=== PATIENT | female | born 1975 | race Caucasian/White ===

== ENCOUNTER → 2019-09-16 | Outpatient (CLI) | payer OTHER ==
[~2019-09-16] MED LIST: ACET325 PO; Advil200 M1 PO; BC PATCH; CANNABIS OIL PO; CETI5; CETI5 PO; DIPH50 PO; FRANKINCENSE TOP; LORA10 PO; Lidocaine-Priloc5 GM TOP; ONDA8 PO; OXYACE5T PO; Omeprazole20 M1 PO; PROM25 PO
== END | disposition home or self-care (01) ==
LOC: LAB SHORT 08:29 → PLD 08:29
DX: R23.4 Changes in skin texture (principal)
CPT/HCPCS: 88305; 88312

== ENCOUNTER → 2019-11-21 | Outpatient (CLI) | payer OTHER ==
[2019-11-21 16:30] LABS: BASOPHILS ABSOLUTE AUTO 0.02 K/mm3 (0.00-0.23); BASOPHILS PERCENT AUTO 0 % (0-2); EOSINOPHILS PERCENT AUTO 2 % (0-6); Hematocrit 39.2 % (33.0-51.0); Hemoglobin 12.9 g/dL (11.5-16.0); IMMATURE GRAN ABSOLUTE AUTO 0.03 K/mm3 (0.00-0.10); IMMATURE GRAN PERCENT AUTO 1 % (0-1); LYMPHOCYTES ABSOLUTE AUTO 0.83 K/mm3 (0.84-5.20); LYMPHOCYTES PERCENT AUTO 14 % (21-46); MONOCYTES ABSOLUTE AUTO 0.31 K/mm3 (0.16-1.47); MONOCYTES PERCENT AUTO 5 % (4-13); Mean Corpuscular HGB 30.9 pg (26.0-34.0); Mean Corpuscular HGB Conc 32.9 g/dL (31.5-36.5); Mean Corpuscular Volume 94 fL (80-100); Mean Platelet Volume 10.4 fL (9.1-12.4); NEUTROPHILS ABSOLUTE AUTO 4.55 K/mm3 (1.96-9.15); NEUTROPHILS PERCENT AUTO 78 % (41-73); Platelet Count 213 K/mm3 (150-400); RDW Coefficient Variation 13.4 % (11.7-14.2); RDW Standard Deviation 46.4 fL (35.1-46.3); Red Blood Cell Count 4.17 M/mm3 (3.80-5.20); White Blood Cell Count 5.84 K/mm3 (4.00-11.30)
[2019-11-21 17:03] LABS: Albumin, Blood 3.9 g/dL (3.4-5.0); Alk Phos 673 U/L (40-126); Anion Gap 11 mmol/L (6-16); Bilirubin, Total 4.2 mg/dL (0.1-1.0); Blood Urea Nitrogen 9 mg/dL (8-24); Bun/Creatinine Ratio 12.9 (12.0-20.0); CO2, Blood 27 mmol/L (21-32); Calcium, Blood 9.1 mg/dL (8.5-10.1); Chloride, Blood 102 mmol/L (98-108); Globulin, Blood 3.8 g/dL (2.2-4.0); Glomerular Filtration Rate >60 (60-); Glucose, Blood 136 mg/dL (70-99); Sodium, Blood 140 mmol/L (136-145); Total Protein, Blood 7.7 g/dL (6.4-8.2)
[2019-11-21 17:06] LABS: Alanine Aminotransfer (ALT/SGP 2824 U/L (12-78); Aspartate Aminotrans (AST/SGOT 1661 U/L (12-37)
== END ==
LOC: LAB SHORT 16:25 → LAB EV 16:25
PROVIDERS: Emergency Medicine
DX: E86.0 Dehydration (principal)
CPT/HCPCS: 80053; 83690; 85025

== ENCOUNTER → 2020-09-03 | Outpatient (CLI) | payer OTHER ==
[~2020-09-03] MED LIST changes: +CITA20 PO; +COMPAZINE10 MG; +DULCOLAX400 MG/5 M; +DURAGESIC1 EAC1 TOP; +HYDMOR2; +METO5A PO; +OLANZAPINE ODT10 MG PO; +OLANZAPINE PO; +OMEP20ER; +PANT40 PO; +POTA20LUD PO
[2020-09-03 16:03] LABS: Hematocrit 26.1 % (33.0-51.0); Hemoglobin 8.4 g/dL (11.5-16.0); Mean Corpuscular HGB 27.8 pg (26.0-34.0); Mean Corpuscular HGB Conc 32.2 g/dL (31.5-36.5); Mean Corpuscular Volume 86 fL (80-100); RDW Coefficient Variation 14.6 % (11.7-14.2); RDW Standard Deviation 46.1 fL (35.1-46.3); Red Blood Cell Count 3.02 M/mm3 (3.80-5.20); White Blood Cell Count 16.56 K/mm3 (4.00-11.30)
[2020-09-03 16:04] LABS: Mean Platelet Volume 11.9 fL (9.1-12.4); Platelet Count 139 K/mm3 (150-400)
[2020-09-03 16:56] LABS: Albumin/Globulin Ratio 0.4 (0.8-1.8); Bilirubin, Direct 1.6 mg/dL (0.0-0.3); Bilirubin, Indirect 0.3 mg/dL (0.1-0.7); Bilirubin, Total 1.9 mg/dL (0.1-1.0); Bun/Creatinine Ratio 28.1 (12.0-20.0); Calcium, Blood 9.1 mg/dL (8.5-10.1); Creatinine, Blood 1.14 mg/dL (0.40-1.00); Globulin, Blood 5.5 g/dL (2.2-4.0); Potassium, Blood 3.1 mmol/L (3.5-5.5); Total Protein, Blood 7.5 g/dL (6.4-8.2)
[2020-09-03 17:11] LABS: BAND PERCENT MAN 1 % (0-8); BASOPHILS PERCENT MAN 0 % (0-2); EOSINOPHILS PERCENT MAN 0 % (0-6); LYMPHOCYTES ABSOLUTE MAN 0.66 K/mm3 (0.84-5.20); LYMPHOCYTES PERCENT MAN 4 % (21-46); MONOCYTES ABSOLUTE MAN 0.16 K/mm3 (0.16-1.47); MONOCYTES PERCENT MAN 1 % (4-13); NEUTROPHILS ABSOLUTE MAN 15.73 K/mm3 (1.96-9.15); SEG NEUTROPHILS PERCENT MAN 94 % (41-73); TOTAL CELLS COUNTED 100
== END | disposition home or self-care (01) ==
LOC: LAB SHORT 14:50 → LAB 14:50
PROVIDERS: Nurse Practitioner
DX: E86.0 Dehydration (principal)
CPT/HCPCS: 80053; 82248; 85007; 85027

== ENCOUNTER 2020-09-09 00:06 | Day surgery (SDC) | payer OTHER ==
[~2020-09-09 00:06] MED LIST changes: -CITA20 PO; -COMPAZINE10 MG; -DULCOLAX400 MG/5 M; -DURAGESIC1 EAC1 TOP; -HYDMOR2; -METO5A PO; -OLANZAPINE ODT10 MG PO; -OLANZAPINE PO; -OMEP20ER; -PANT40 PO; -POTA20LUD PO
== END 2020-09-09 22:43 | disposition home or self-care (01) ==
LOC: ATC 00:06
DX: E86.0 Dehydration (principal); I10 Essential (primary) hypertension; K83.1 Obstruction of bile duct; C78.7 Secondary malignant neoplasm of liver and intrahepatic bile duct; C50.212 Malignant neoplasm of upper-inner quadrant of left female breast; Z88.1 Allergy status to other antibiotic agents; Z88.8 Allergy status to other drugs, medicaments and biological substances; Z79.899 Other long term (current) drug therapy
CPT/HCPCS: J7030

== ENCOUNTER 2020-09-12 18:46 | Inpatient (IN) | payer OTHER ==
[~2020-09-12] VITALS: Ht 165.1 cm; Wt 61.0 kg
[2020-09-12 19:14] LABS: BASOPHILS ABSOLUTE AUTO 0.03 K/mm3 (0.00-0.23); BASOPHILS PERCENT AUTO 0 % (0-2); EOSINOPHILS PERCENT AUTO 0 % (0-6); IMMATURE GRAN PERCENT AUTO 12 % (0-1); LYMPHOCYTES ABSOLUTE AUTO 0.84 K/mm3 (0.84-5.20); LYMPHOCYTES PERCENT AUTO 5 % (21-46); MONOCYTES ABSOLUTE AUTO 0.76 K/mm3 (0.16-1.47); MONOCYTES PERCENT AUTO 5 % (4-13); Mean Corpuscular HGB 28.5 pg (26.0-34.0); Mean Corpuscular HGB Conc 29.8 g/dL (31.5-36.5); Mean Corpuscular Volume 96 fL (80-100); Mean Platelet Volume 11.6 fL (9.1-12.4); NEUTROPHILS ABSOLUTE AUTO 12.76 K/mm3 (1.96-9.15); NEUTROPHILS PERCENT AUTO 78 % (41-73); NRBC ABSOLUTE 0.55 K/mm3 (0.00-0.02); NRBC Auto 3.4 /100 WBC (0.0-0.2); Platelet Count 220 K/mm3 (150-400); RDW Coefficient Variation 17.9 % (11.7-14.2); RDW Standard Deviation 55.3 fL (35.1-46.3); Red Blood Cell Count 1.58 M/mm3 (3.80-5.20); White Blood Cell Count 16.29 K/mm3 (4.00-11.30)
[2020-09-12 19:15] LABS: Hematocrit 15.1 % (33.0-51.0); Hemoglobin 4.5 g/dL (11.5-16.0)
[2020-09-12 19:32] LABS: Source, Urine Catheter
[2020-09-12 19:36] LABS: Appearance, Urine Cloudy (Clear); Blood, Urine 1+ (Neg); Color, Urine Amber (P-Yellow); Glucose Qualitative, Urine Neg (Neg); Ketones, Urine 1+ (Neg); Leukocyte Esterase, Urine 2+ (Neg); Nitrite, Urine Neg (Neg); Protein, Urine 2+ (Neg); Urobilinogen, Urine 1+ (Normal)
[2020-09-12 19:36] LABS: BAND PERCENT MAN 5 % (0-8); BASOPHILS PERCENT MAN 0 % (0-2); EOSINOPHILS PERCENT MAN 0 % (0-6); LYMPHOCYTES ABSOLUTE MAN 0.65 K/mm3 (0.84-5.20); LYMPHOCYTES PERCENT MAN 4 % (21-46); METAMYELOCYTE ABSOLUTE MAN 0.32 K/mm3 (0.00-0.00); METAMYELOCYTE PERCENT MAN 2 % (0-0); MONOCYTES ABSOLUTE MAN 0.48 K/mm3 (0.16-1.47); MONOCYTES PERCENT MAN 3 % (4-13); MYELOCYTE ABSOLUTE MAN 0.32 K/mm3 (0.00-0.00); MYELOCYTE PERCENT MAN 2 % (0-0); NEUTROPHILS ABSOLUTE MAN 14.49 K/mm3 (1.96-9.15); SEG NEUTROPHILS PERCENT MAN 84 % (41-73); TOTAL CELLS COUNTED 100
[2020-09-12 19:38] LABS: Alanine Aminotransfer (ALT/SGP 25 U/L (12-78); Albumin, Blood 1.9 g/dL (3.4-5.0); Albumin/Globulin Ratio 0.3 (0.8-1.8); Alk Phos 660 U/L (50-136); Anion Gap 18 mmol/L (6-16); Aspartate Aminotrans (AST/SGOT 23 U/L (12-37); Bilirubin, Total 1.4 mg/dL (0.1-1.0); Blood Urea Nitrogen 47 mg/dL (8-24); Bun/Creatinine Ratio 35.9 (12.0-20.0); CO2, Blood 21 mmol/L (21-32); Calcium, Blood 9.6 mg/dL (8.5-10.1); Chloride, Blood 99 mmol/L (98-108); Creatinine, Blood 1.31 mg/dL (0.40-1.00); Globulin, Blood 5.6 g/dL (2.2-4.0); Glomerular Filtration Rate 46 (60-); Glucose, Blood 196 mg/dL (70-99); Potassium, Blood 4.6 mmol/L (3.5-5.5); Sodium, Blood 138 mmol/L (136-145); Total Protein, Blood 7.5 g/dL (6.4-8.2); Troponin I <0.015 ng/mL (0.000-0.040)
[2020-09-12 19:41] LABS: Bilirubin, Urine 2+ (Neg)
[2020-09-12 19:42] LABS: Bacteria Many /hpf; Red Blood Cells, Urine 0-2 /hpf (0-2); Squamous Epithelial Cells Few /hpf (Few)
[2020-09-12] MEDS ORDERED: POTA20LUD PO (19:46)
[2020-09-12] MEDS ORDERED: DURAGESIC1 EAC1 TOP (19:48)
[2020-09-12] MEDS ORDERED: OLANZAPINE PO (19:49)
--- NOTE | 2020-09-13 04:23 | NUR ---
BONDING SUPERVISOR SUMMARY PT ADMITTED TO FLOOR AROUND 2300, ORIENTED X3 BUT CONTINUES TO BE LETHARGIC. HEPATIC DRAINAGE SYSTEM CHANGED. PEG TUBE DRESSING PLACED. CURRENTLY TRANSFUSING 3RD UNIT OF PRBC, TOLERATING WELL. BED IN LOWEST POSITION WITH CALL LIGHT IN REACH. WILL CONTINUE TO MONITOR AND REPORT TO ONCOMING RN.
[2020-09-13 09:48] LABS: Hematocrit 22.5 % (33.0-51.0); Hemoglobin 7.5 g/dL (11.5-16.0); Mean Corpuscular HGB 29.4 pg (26.0-34.0); Mean Corpuscular HGB Conc 33.3 g/dL (31.5-36.5); Mean Platelet Volume 11.4 fL (9.1-12.4); NRBC ABSOLUTE 0.15 K/mm3 (0.00-0.02); NRBC Auto 1.8 /100 WBC (0.0-0.2); Platelet Count 73 K/mm3 (150-400); RDW Coefficient Variation 14.6 % (11.7-14.2); RDW Standard Deviation 44.6 fL (35.1-46.3); Red Blood Cell Count 2.55 M/mm3 (3.80-5.20); White Blood Cell Count 8.42 K/mm3 (4.00-11.30)
[2020-09-13 09:59] LABS: Mean Corpuscular Volume 88 fL (80-100)
[2020-09-13 10:30] LABS: Anion Gap 5 mmol/L (6-16); Blood Urea Nitrogen 37 mg/dL (8-24); Bun/Creatinine Ratio 35.9 (12.0-20.0); CO2, Blood 30 mmol/L (21-32); Calcium, Blood 8.1 mg/dL (8.5-10.1); Chloride, Blood 106 mmol/L (98-108); Creatinine, Blood 1.03 mg/dL (0.40-1.00); Glomerular Filtration Rate >60 (60-); Glucose, Blood 111 mg/dL (70-99); Potassium, Blood 3.6 mmol/L (3.5-5.5); Sodium, Blood 141 mmol/L (136-145)
--- NOTE | 2020-09-13 12:00 | NUR ---
PT STARTED OF SHIFT WITH NO NAUSEA, BUT THE MORNING HAS PAST PT HAS BEEN REPORTING A SORE STOMACH AND HAS BEEN TREATED FOR NAUSEA X1 THIS HAS NOT BEEN EFFECTIVE WILL CONTACT DR PEPE TO SEE IF SHE CAN ORDER A DIFFERENT NAUSEA MED.
[2020-09-14 06:03] LABS: Hematocrit 24.9 % (33.0-51.0); Mean Corpuscular HGB 29.1 pg (26.0-34.0); Mean Corpuscular HGB Conc 32.1 g/dL (31.5-36.5); Mean Corpuscular Volume 91 fL (80-100); Mean Platelet Volume 11.9 fL (9.1-12.4); NRBC ABSOLUTE 0.12 K/mm3 (0.00-0.02); NRBC Auto 1.1 /100 WBC (0.0-0.2); Platelet Count 84 K/mm3 (150-400); RDW Coefficient Variation 15.9 % (11.7-14.2); RDW Standard Deviation 48.9 fL (35.1-46.3); Red Blood Cell Count 2.75 M/mm3 (3.80-5.20); White Blood Cell Count 11.09 K/mm3 (4.00-11.30)
--- NOTE | 2020-09-14 06:18 | NUR ---
FORENSIC ECONOMIST SUMMARY PT AAOX4 AND PLEASANT. PT CONTINUES TO HAVE N/V OFF AND ON THROUGHOUT THE NIGHT. MEDICATED WITH ANTIEMETIC MEDS PER EMAR WITH SOME RELIEF. CONTINUOUS TUBE FEEDING GOING AT 35 ML/HR FOR MOST OF THE NIGHT. CHANGED RATE TO GOAL OF 50 ML/HR LATE THIS AM PT DENIED BLOATING OR FEELING FULL AND NO RESIDUAL WAS NOTED. PT HAS USED BEDPAN WITH ASSISTANCE THROUGH THE NIGHT. DENIES PAIN, JUST COMPLAINS OF N/V. HAS BEEN ABLE TO REST OFF/ON TONIGHT. VSS, WILL CONTINUE TO MONITOR.
[2020-09-14 06:24] LABS: Albumin, Blood 1.4 g/dL (3.4-5.0); Anion Gap 7 mmol/L (6-16); Blood Urea Nitrogen 31 mg/dL (8-24); Bun/Creatinine Ratio 30.1 (12.0-20.0); CO2, Blood 32 mmol/L (21-32); Calcium, Blood 8.3 mg/dL (8.5-10.1); Chloride, Blood 101 mmol/L (98-108); Creatinine, Blood 1.03 mg/dL (0.40-1.00); Glomerular Filtration Rate >60 (60-); Glucose, Blood 178 mg/dL (70-99); Magnesium, Blood 2.1 mg/dL (1.6-2.4); Phosphorus, Blood 3.7 mg/dL (2.5-4.9); Potassium, Blood 3.2 mmol/L (3.5-5.5); Sodium, Blood 140 mmol/L (136-145)
[2020-09-14 06:26] LABS: BAND PERCENT MAN 1 % (0-8); BASOPHILS PERCENT MAN 0 % (0-2); EOSINOPHILS PERCENT MAN 0 % (0-6); LYMPHOCYTES ABSOLUTE MAN 0.66 K/mm3 (0.84-5.20); LYMPHOCYTES PERCENT MAN 6 % (21-46); MONOCYTES ABSOLUTE MAN 0.11 K/mm3 (0.16-1.47); MONOCYTES PERCENT MAN 1 % (4-13); MYELOCYTE ABSOLUTE MAN 0.33 K/mm3 (0.00-0.00); MYELOCYTE PERCENT MAN 3 % (0-0); NEUTROPHILS ABSOLUTE MAN 9.98 K/mm3 (1.96-9.15); SEG NEUTROPHILS PERCENT MAN 89 % (41-73); TOTAL CELLS COUNTED 100
--- NOTE | 2020-09-14 09:40 | NUR ---
STOMA BAG TO RT LATERAL RIB AREA CHANGED. PATIENT CLEANED OF FLUID THAT LEAKED FROM BAG. TUBING AND FEEDING CHANGED. TUBE FEEDING AT 50ML/HR. IV POTASSIUM STARTED WITH MINI BAG NS TO DILUTE. WCTM
--- NOTE | 2020-09-14 10:57 | NUR ---
ADVISED PATIENT HAD XTRA LARGE B.M. DARK IN COLOR WITH DARK RED BLOOD. TO SEND ONE TIME HEMOCULT.
[2020-09-14 12:39] LABS: Hematocrit 26.9 % (33.0-51.0); Hemoglobin 8.6 g/dL (11.5-16.0)
[2020-09-14 13:15] LABS: Percent Saturation 7.4 % (15.0-50.0)
[2020-09-14 13:45] LABS: Stool Occult Blood Guaiac 1 Pos (Neg)
[2020-09-14 18:06] LABS: Hematocrit 25.5 % (33.0-51.0); Hemoglobin 8.1 g/dL (11.5-16.0)
--- NOTE | 2020-09-14 18:25 | NUR ---
ALERT. ORIENTED. SPEAKS IN LOW VOICE. PER TECH AT THIS TIME ST AT 101. BLD PRESS 145/103 WITH AWARE AND STS WATCH FOR NOW. DR. APARICIO TO SEE LATER TODAY. PATIENT HAS STATED SHE DOES NOT FEEL LIKE SHE COULD DRINK THE FLUID GIVEN PRIOR TO COLONOSCOPY. AWARE. LEFT SIDED MASTECTOMY. H&H STABLE AT THIS TIME. UNLABORED RESPIRATIONS.WCTM
--- NOTE | 2020-09-15 04:19 | NUR ---
SHIFT SUMMARY PT HAD ONE EPISODE OF VOMITING, 300 ML DARK BROWN EMSIS AFTER GETTING UP TO THE BSC. OTHERWISE NO OTHER COMPLAINTS. HEPATIC DRAINAGE PORT DRAINING DARK BROWN/YELLOW FLUID. PT SEEMS WITHDRAWN. DR. APARICIO CAME TO TALK WITH PATIENT. PT IS CURRENTLY LAYING IN BED WITH EYES CLOSED, EVEN AND UNLABORED RESPIRATIONS. BED IN LOWERED POSITION WITH SIDE RAILS UP X2 FOR SAFETY. CALL LIGHT AND PERSONAL ITEMS WITH IN REACH. NO APPARENT NEEDS OR DISTRESS AT THIS TIME, WILL CONTINUE TO MONITOR UNTIL REPORT GIVEN TO DAY RN.
[2020-09-15 05:59] LABS: Hematocrit 23.1 % (33.0-51.0); Hemoglobin 7.2 g/dL (11.5-16.0)
[2020-09-15 06:14] LABS: Albumin, Blood 1.3 g/dL (3.4-5.0); Anion Gap 5 mmol/L (6-16); Blood Urea Nitrogen 27 mg/dL (8-24); Bun/Creatinine Ratio 32.6 (12.0-20.0); CO2, Blood 34 mmol/L (21-32); Calcium, Blood 8.4 mg/dL (8.5-10.1); Chloride, Blood 103 mmol/L (98-108); Creatinine, Blood 0.83 mg/dL (0.40-1.00); Glomerular Filtration Rate >60 (60-); Glucose, Blood 173 mg/dL (70-99); Phosphorus, Blood 3.5 mg/dL (2.5-4.9); Potassium, Blood 3.6 mmol/L (3.5-5.5); Sodium, Blood 142 mmol/L (136-145)
--- NOTE | 2020-09-15 13:04 | NUR ---
SAW PATIENT THIS AM. WATCHING H&H. SURESH HUFFMAN SALES PROFESSIONAL TO [employer] TUBE FEEDING. PATIENT STILL TAKING IN VERY LITTLE. URINE VERY DARK. STOOL YESTERDAY WAS DARK MAROON IN COLOR WITH DARK RED BLOOD STREAKS. 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 PATIENTS FRIENDS ,BEN, STS DAD WANTS TO TAKE HER TO [facility] ON SUNDAY. [facility].
[2020-09-15 14:35] LABS: Hematocrit 22.1 % (33.0-51.0); Hemoglobin 6.9 g/dL (11.5-16.0)
--- NOTE | 2020-09-15 15:34 | NUR ---
LEFT MESSAGE ON VOICE MAIL TO "CHECK RM 337 LABS AND LET ME KNOW IF SHE WANTS TO DO ANYTHING." HBG 7.2 TO 6.9. AWAITING ANY ORDERS.
--- NOTE | 2020-09-15 19:15 | NUR ---
ALERT. ORIENTED. MEDICATED FOR NAUSEA. HAS NOT VOMITING THIS SHIFT. STILL RECEIVING ONE UINT OF BLOOD AND IS TOLERATING WELL. WANTS TO GET D'C TOMORROW SO SHE CAN F/U WITH HER ONCOLOGY IN [place] ON SUNDAY WITH AWARE. IN TO SEE TONIGHT. TELE ON AND HAS BEEN ST UP TO 110. HAS HAS VERY LITTLE FLUIDS P.O. TUBE FEEDING INFUSING AT 50 ML/HR. REPORT TO NIGHT RN
[2020-09-16 06:01] LABS: Hematocrit 25.2 % (33.0-51.0); Hemoglobin 7.9 g/dL (11.5-16.0); Mean Corpuscular HGB Conc 31.3 g/dL (31.5-36.5); Mean Corpuscular Volume 93 fL (80-100); Mean Platelet Volume 11.6 fL (9.1-12.4); NRBC ABSOLUTE 0.02 K/mm3 (0.00-0.02); NRBC Auto 0.1 /100 WBC (0.0-0.2); Platelet Count 110 K/mm3 (150-400); RDW Coefficient Variation 16.3 % (11.7-14.2); Red Blood Cell Count 2.72 M/mm3 (3.80-5.20); White Blood Cell Count 17.77 K/mm3 (4.00-11.30)
[2020-09-16 06:22] LABS: Albumin, Blood 1.3 g/dL (3.4-5.0); Anion Gap 8 mmol/L (6-16); Blood Urea Nitrogen 31 mg/dL (8-24); Bun/Creatinine Ratio 34.3 (12.0-20.0); CO2, Blood 31 mmol/L (21-32); Calcium, Blood 8.5 mg/dL (8.5-10.1); Chloride, Blood 103 mmol/L (98-108); Glomerular Filtration Rate >60 (60-); Glucose, Blood 158 mg/dL (70-99); Phosphorus, Blood 4.1 mg/dL (2.5-4.9); Potassium, Blood 3.7 mmol/L (3.5-5.5); Sodium, Blood 142 mmol/L (136-145)
[2020-09-16 06:25] LABS: BAND PERCENT MAN 2 % (0-8); BASOPHILS PERCENT MAN 0 % (0-2); EOSINOPHILS PERCENT MAN 0 % (0-6); LYMPHOCYTES ABSOLUTE MAN 0.71 K/mm3 (0.84-5.20); LYMPHOCYTES PERCENT MAN 4 % (21-46); MONOCYTES ABSOLUTE MAN 0.35 K/mm3 (0.16-1.47); MONOCYTES PERCENT MAN 2 % (4-13); MYELOCYTE ABSOLUTE MAN 0.17 K/mm3 (0.00-0.00); MYELOCYTE PERCENT MAN 1 % (0-0); NEUTROPHILS ABSOLUTE MAN 16.52 K/mm3 (1.96-9.15); SEG NEUTROPHILS PERCENT MAN 91 % (41-73); TOTAL CELLS COUNTED 100
--- NOTE | 2020-09-16 06:29 | NUR ---
SUMMARY PT CONTINUES TO HAVE NAUSEA. PT RESPONDS WELL TO TX. PT HAD ONE EPISODE OF DRY HEAVES. PT DENIES PAIN. NO ISSUES NOTED W/ TUBE FEEDING. PT HAS SLEPT SOME T/O SHIFT. PT CURRENTLY SLEEPING IN NO DISTRESS. CALL LIGHT IN REACH.
--- NOTE | 2020-09-16 17:55 | NUR ---
SHIFT SUMMARY PT REMAINS VERY WEAK WITH C/O NAUSEA THRU OUT THE DAY. MEDICATED PER EMAR. TOLERATING TUBE FEEDING, BUT LIMITED PO INTAKE. UP TO BSC AND TO BTHRM THRU OUT THE DAY. VERY LRG, BLOODY BM THIS MORNING. PER SHIFT REPORT, PT WITH GIB SOMEWHERE. PT PLANNING ON GOING TO [facility] TOMORROW FOR FOLLOW UP ON SEVERAL ISSUES; STAGE 4 BREAST CA W/METS. PT ADMITTED FOR ANEMIA, WITH HgB AT 4.5. PER REPORT PT RECEIVED 4 UNITS PRBC'S; HgB AT 7.9 THIS AM. LIVER PORT TO LUQ; EMPTIED 100cc VERY BROWN/ORANGE FLUID FROM BAG. ST PER TELE MX. VISITOR TO THIS AFTERNOON. DENIED FURTHER NEEDS AT THIS TIME. CALL LT IN REACH.
--- NOTE | 2020-09-17 03:25 | NUR ---
SHIFT SUMMARY PATIENT HAD NO ACUTE CHANGES OBSERVED. AXOX 3 WITH FLAT AFFECT. SBA TO BSC. POWERGLIDE RC INTACT. TOLERATING CONTINUOUS FEEDING THROUGH PEG TUBE AT 50 mL/HR. HEPATIC PORT TO RUQ. SHORT GOODS DRIER REPORTS ST 107. DENIES PAIN, SOB, AND N/V. VSS/AFEBRILE. ABLE TO SLEEP MOST OF SHIFT. CALL LIGHT IN REACH. BED IN LOWEST. WILL CONTINUE TO MONITOR UNTIL DAY SHIFT NURSE ASSUMES CARE.
--- NOTE | 2020-09-17 05:10 | NUR ---
NAUSEOUS X ONE AND IV ZOFRAN GIVEN PER EMAR. CALL LIGHT IN REACH.
[2020-09-17 05:12] LABS: Hematocrit 23.9 % (33.0-51.0); Hemoglobin 7.4 g/dL (11.5-16.0); Mean Corpuscular HGB 29.2 pg (26.0-34.0); Mean Corpuscular Volume 95 fL (80-100); Mean Platelet Volume 11.5 fL (9.1-12.4); Platelet Count 124 K/mm3 (150-400); RDW Coefficient Variation 16.4 % (11.7-14.2); Red Blood Cell Count 2.53 M/mm3 (3.80-5.20); White Blood Cell Count 16.08 K/mm3 (4.00-11.30)
[2020-09-17 05:44] LABS: BAND PERCENT MAN 4 % (0-8); BASOPHILS PERCENT MAN 0 % (0-2); EOSINOPHILS PERCENT MAN 0 % (0-6); LYMPHOCYTES ABSOLUTE MAN 0.32 K/mm3 (0.84-5.20); LYMPHOCYTES PERCENT MAN 2 % (21-46); MONOCYTES PERCENT MAN 5 % (4-13); MYELOCYTE ABSOLUTE MAN 0.16 K/mm3 (0.00-0.00); MYELOCYTE PERCENT MAN 1 % (0-0); NEUTROPHILS ABSOLUTE MAN 14.79 K/mm3 (1.96-9.15); SEG NEUTROPHILS PERCENT MAN 88 % (41-73); TOTAL CELLS COUNTED 100
--- NOTE | 2020-09-17 05:50 | NUR ---
HEPATIC PORT BAG EMPTIED 100 mL DARK ORANGE/BROWN FLUID.
[2020-09-17] MEDS ORDERED: ACET325 PO (10:24)
[2020-09-17] MEDS ORDERED: METO5A PO (10:25)
[2020-09-17] MEDS ORDERED: CITA20 PO (10:26)
[2020-09-17] MEDS ORDERED: PANT40 PO (10:27)
[2020-09-17] MEDS ORDERED: PROM25 PO (10:28)
--- NOTE | 2020-09-17 14:11 | NUR ---
PT REMAINED MOSTLY UNCHANGED. WAITING FOR D/C TO GO TO [facility]. PT VERY WEAK AND JAUNDICED. LUQ LIVER PORT CONTINUES TO DRAIN. OSTOMY BAG CHANGED PER PT REQUEST. DR APARICIO IN TO SEE PT EARLY THIS AM. PT ENCOURAGED TO F/U AT [facility] PLANNED TO FIND SOURCE OF GIB. DR YEAGER IN TO SEE PT. D/C ORDERS PLACED. MEDS FAXED PER PT REQUEST. TUBE FEEDING STOPPED AND PEG TUBE FLUSHED. PT REQUESTED RC PG TO BE LEFT IN FOR FURTHER TX AT [facility]. DISCUSSED WITH [facility] CHRISTIE RAYMOND AND NRS TOOL REPAIRER FRANCIS; PG OK TO LEAVE IN D/T PT CONDITION AND NEED FOR CONTINUED TX. PG DOCUMENTATION PRINTED AND SENT WITH PT FOR REFERENCE AT [facility]. PT'S DAD TO TO ASSIST PT W/BELONGINGS. D/C INSTRUCTIONS DISCUSSED WITH PT. VERBALIZED UNDERSTANDING. PT ASSISTED OUT TO CAR VIA W/C.
== END 2020-09-17 13:00 | disposition home or self-care (01) | DRG 812 ==
LOC: ER 18:46 → MEDS 18:48 → ER 22:41 → MEDS 22:41
PROVIDERS: Emergency Medicine; Internal Medicine; ADMIT Internal Medicine
PROC: 30243N1 Transfusion of Nonautologous Red Blood Cells into Central Vein, Percutaneous Approach (ICD-10-PCS; principal; 2020-09-12)
DX: D62 Acute posthemorrhagic anemia (principal); K92.2 Gastrointestinal hemorrhage, unspecified; N17.9 Acute kidney failure, unspecified; C78.00 Secondary malignant neoplasm of unspecified lung; C78.7 Secondary malignant neoplasm of liver and intrahepatic bile duct; C77.3 Secondary and unspecified malignant neoplasm of axilla and upper limb lymph nodes; E86.0 Dehydration; K72.90 Hepatic failure, unspecified without coma; N18.30 Chronic kidney disease, stage 3 unspecified; D72.829 Elevated white blood cell count, unspecified; C50.919 Malignant neoplasm of unspecified site of unspecified female breast
CPT/HCPCS: 36415; 36430; 51701; 80048; 80053; 80069; 81001; 82272; 82607; 82728; 82746; 82947; 83540; 83550; 83735; 84484; 85014; 85018; 85025; 85027; 86850; 86900; 86901; 86923; 87086; 93005; 93010; 96361; 96365; 96366; 96374; 96375; 96376; 97110; 97162; 97166; 97530; 97530-CO; 97535; 97535-CO; 99284-25; C1751; C9113; G0378; J2405; J2550; J2916; J3480; J7030; J7040; J7050; P9016

== ENCOUNTER 2020-10-06 10:55 | Emergency (ER) | payer OTHER ==
[~2020-10-06] VITALS: Ht 175.3 cm; Wt 65.8 kg
[~2020-10-06 10:55] MED LIST changes: +CITA20 PO; +DURAGESIC1 EAC1 TOP; +METO5A PO; +OLANZAPINE PO; +PANT40 PO; +POTA20LUD PO
[2020-10-06] MEDS ORDERED: OLANZAPINE ODT10 MG PO (11:19)
[2020-10-06] MEDS ORDERED: OMEP20ER (11:20)
[2020-10-06] MEDS ORDERED: HYDMOR2 (11:21)
[2020-10-06] MEDS ORDERED: DULCOLAX400 MG/5 M (11:22)
[2020-10-06] MEDS ORDERED: COMPAZINE10 MG (11:23)
== END 2020-10-06 13:09 | disposition home or self-care (01) ==
LOC: ER 10:55
DX: K94.23 Gastrostomy malfunction (principal); Z85.3 Personal history of malignant neoplasm of breast; Z88.1 Allergy status to other antibiotic agents; Z79.4 Long term (current) use of insulin; Z91.09 Other allergy status, other than to drugs and biological substances; Z79.899 Other long term (current) drug therapy
CPT/HCPCS: 99282